=== PATIENT | female | born 1995 | race Caucasian/White ===

== ENCOUNTER 2016-08-15 16:09 | Emergency (ER) | payer OTHER ==
--- NOTE | ~2016-08-15 | EKG ---
PATIENT: ANDI PANCHAL UNIT #: [id number] Ventricular Rate: 81 BPM Atrial Rate: 81 BPM P-R Interval: 164 ms QRS Duration: 84 ms Q-T Interval: 378 ms QTC Calculation(Bezet): 439 ms P [place]: 30 degrees Calculated R [place]: 58 degrees Calculated T [place]: 42 degrees Diagnosis Line: Normal sinus rhythm Diagnosis Line: Cannot rule out Anterior infarct , age Diagnosis Line: undetermined Diagnosis Line: Abnormal ECG Diagnosis Line: No previous ECGs available Diagnosis Line: Confirmed by RENE CAIN MD ([id number]) on Diagnosis Line: 08/17/2016 1:27:02 PM INTERPRETING MD: ANT NUÑEZ
--- NOTE | ~2016-08-15 | CT16 ---
[facility] A Service of [facility] & [facility] RADIOLOGY TEXT RESULTS PATIENT: ANDI PANCHAL LOCATION: SED : [birth year] UNIT #: [id number] AGE: [address]: BRAD LEE PA-C SEX: F ORDER DR: [id number] [address] [address] [id number] E MR#: [id number] Acc #: [id number] NAME: ANDI PANCHAL. : 1995 SEX: F STUDY DATE/TIME: 08/15/2016 19:31 UNIT: SED ROOM: STUDY DESCRIPTION: CT Angio Chest for PE Attending Physician: Brad Lee Pa-C Ordering Physician: Physician Non-Staff Primary Care Physician: Tamera Newton M.D. MEDICAL IMAGING REPORT This report is preliminary unless electronic signature is present. EXAM CT chest, PE protocol HISTORY D-dimer elevated, left flank and chest pain for 2 weeks. History of asthma. COMMENT CT of the chest performed during the intravenous administration of 100 mL of Isovue-370 with imaging acquired in the axial plane using pulmonary embolism protocol. This is followed by 3-D coronal MIP reconstructed imaging for the purpose of CT pulmonary angiography. The study is limited by the patient's morbid obesity. This CT exam was performed with one or more of the following radiation dose reduction techniques: Automatic exposure control, adjustment of mA and/or kV according to patient size, and iterative reconstruction. There is no evidence for thoracic aortic dissection. There is no evidence for pulmonary embolism. There is no pericardial or pleural effusion. Patient is post cholecystectomy. There might be a small hiatal hernia. There is no hilar, mediastinal or axillary lymphadenopathy. No pneumothorax. Lungs clear, no congestive failure. IMPRESSION No evidence for pulmonary embolus, pleural or pericardial effusion, thoracic aortic dissection or pneumothorax. Lungs are clear. There may be a small hiatal hernia, otherwise essentially normal CT of the chest using pulmonary embolism protocol. Patient is post cholecystectomy. STAT * RESULT STS. [facility] A Service of [facility] & [facility] RADIOLOGY TEXT RESULTS PATIENT: ANDI PANCHAL [place] [facility] [place] [birth year] [place]IT #: [id number] AGE: [address]: BRAD LEE PA-C SEX: F ORDER DR: Dictated by... Fanny Sánchez M.D. THIS IS AN ELECTRONICALLY VERIFIED REPORT Fanny Sánchez M.D. at 08/16/2016 7:36 AM RYAN/fabio TD: 08/15/2016 20:19 JOB #: [id number] MEDICAL IMAGING REPORT Page 1 of 1
--- NOTE | ~2016-08-15 | CT4 ---
[facility] A Service of [facility] RADIOLOGY TEXT RESULTS PATIENT: ANDI PNACHAL LOCATION: SED : 95 UNIT #: [id number] AGE: [address]: BRAD LEE PA-C SEX: F ORDER DR: [id number] [address] [address] [id number] E MR#: [id number] Acc #: [id number] NAME: ANDI PANCHAL. : 1995 SEX: F STUDY DATE/TIME: 08/15/2016 19:27 UNIT: SED ROOM: STUDY DESCRIPTION: CT Abd and Pelv Wo Cont Attending Physician: Brad Lee Pa-C Ordering Physician: [facility] Primary Care Physician: Tamera Newton M.D. MEDICAL IMAGING REPORT This report is preliminary unless electronic signature is present. EXAM CT abdomen and pelvis without contrast HISTORY Left flank pain for [address] exam was performed with one or more of the following radiation dose reduction techniques: automatic exposure control, adjustment of mA and/or kV according to patient size, and iterative reconstruction. FINDINGS CT abdomen and pelvis was performed without contrast. CT ABDOMEN There are 3 tiny right renal calculi and 3 small left renal calculi measuring up to 2 mm on the right and 3 mm on the left. Parenchymal scarring versus developmental lobulation along the posterior mid left kidney. No perinephric stranding. The liver, spleen, pancreas, and adrenal glands are normal. Cholecystectomy. No urinary obstruction. Incidental 3 cm cyst in the lower pole right kidney. No bowel dilatation. Normal caliber abdominal aorta. No ascites. No adenopathy. CT PELVIS Normal appendix. No free fluid. No inflammatory changes. Urinary bladder is normal. The uterus and adnexa are unremarkable. IMPRESSION 1. No acute findings in the abdomen or pelvis. 2. Multiple nonobstructing bilateral renal calculi. 3. Normal appendix. [facility] A Service of [facility] RADIOLOGY TEXT RESULTS PATIENT: ANDI PANCHAL LOCATION: SED : 95 UNIT #: [id number] AGE: [address]: BRAD LEE PA-C SEX: F ORDER DR: Dictated by... Rodrick Rosado M.D. THIS IS AN ELECTRONICALLY VERIFIED REPORT Rodrick Rosado M.D. at 08/16/2016 12:58 PM FABIANA/phil TD: 08/16/2016 08:50 JOB #: [id number] MEDICAL IMAGING REPORT Page 1 of 1
[~2016-08-15 16:09] MED LIST: ALBUTEROL17 GM INH; BENTYL10 MG PO; MACROBID100 MG PO; MOTRIN600 M2 DOB; NO MEDICATIONS; PHENERGAN SUPP25 M1 PR; PHENERGAN25 M1 PO; PRENATAL1 TA1 PO; ZOFRANODT PO
[2016-08-15 16:38] LABS: URINE SOURCE CLEAN CATCH
[2016-08-15 16:41] LABS: URINE APPEARANCE HAZY; URINE BILIRUBIN NEG (NEG); URINE BLOOD 3+ (NEG); URINE COLOR DK YELLOW; URINE GLUCOSE NEG (NORM); URINE KETONE NEG (NEG); URINE LEUKOCYTE ESTERASE TRACE (NEG); URINE NITRATE NEG (NEG); URINE PROTEIN 1+ (NEG); URINE UROBILINOGEN 0.2 MG/DL (NORM)
[2016-08-15 16:42] LABS: MICRO INDICATED? YES
[2016-08-15 16:44] LABS: BASOPHIL% 0.5 % (0-2.5); EOSINOPHIL% 0.5 % (0.0-7.0); HEMATOCRIT 35.4 % (35.0-45.0); HEMOGLOBIN 11.1 gm/dL (12.0-16.0); LYMPHOCYTE# 1.7 X10e3 (1.0-3.5); LYMPHOCYTE% 23.4 % (17.0-45.0); MEAN CELL VOLUME 76.1 FL (83-96); MEAN CORPUSCULAR HEMOGLOBIN 23.7 PG (28-34); MEAN CORPUSCULAR HGB CONC 31.2 g/dL (30-36); MONOCYTE# 0.4 X10e3 (0-1.0); MONOCYTE% 5.6 % (3.0-12.0); NEUTROPHIL# 5.2 X10e3 (1.5-7.1); PLATELET COUNT 223 X10e3 (140-420); RED BLOOD COUNT 4.66 X10e (3.90-5.30); RED CELL DISTRIBUTION WIDTH 18.8 % (11.0-15.5); WHITE BLOOD COUNT 7.4 X10e3 (4.0-10.5)
[2016-08-15 16:47] LABS: URINE RBC 100-200 /[HPF] (0-2)
[2016-08-15 16:48] LABS: CULTURE INDICATED? YES; URINE BACTERIA 2+ (NEG); URINE MUCUS PRESENT; URINE SQUAMOUS EPITHELIAL CELL MODERATE /[HPF]
[2016-08-15 16:56] LABS: DIFF IND NO
[2016-08-15 16:59] LABS: ALBUMIN SERUM 3.9 g/dL (3.5-5.0); BILIRUBIN,TOTAL 0.2 mg/dL (0.2-2.0); CALCIUM SERUM 9.2 mg/dL (8.4-10.2); CREATININE SERUM 0.6 mg/dL (0.6-1.4); GLOM FILT RATE Estimated 131.2 mL/min (>60); POTASSIUM 3.8 mmol/L (3.5-5.1); PROTEIN TOTAL SERUM 7.2 g/dL (6.0-8.3)
[2016-08-15 17:05] LABS: POC - CKMB <1.0 ng/mL (0.0-7.9); POC - TROPONIN <0.05 ng/mL (<=0.05)
[2016-08-15] MEDS ORDERED: MOBIC15 MG PO (21:01)
[2016-08-15] MEDS ORDERED: BACTRIM DS TAB1 EACH PO (21:02)
== END 2016-08-15 21:02 | disposition home or self-care (01) ==
LOC: SED 16:09
PROVIDERS: Physician Assistant
DX: N20.1 Calculus of ureter (principal); N30.01 Acute cystitis with hematuria; J45.909 Unspecified asthma, uncomplicated; F17.200 Nicotine dependence, unspecified, uncomplicated; Z90.49 Acquired absence of other specified parts of digestive tract
CPT/HCPCS: 36415; 71275; 74176; 80053; 81003; 82553; 83690; 84484; 84703; 85025; 85379; 87086; 93005; 96374; 96375; 99284; J2270; J2405; Q9967

== ENCOUNTER 2016-08-16 23:19 | Emergency (ER) | payer OTHER ==
[~2016-08-16 23:19] MED LIST changes: +BACTRIM DS TAB1 EACH PO; +MOBIC15 MG PO
[2016-08-17 01:21] LABS: URINE SOURCE CATH
[2016-08-17 01:23] LABS: URINE APPEARANCE CLEAR; URINE BILIRUBIN NEG (NEG); URINE BLOOD NEG (NEG); URINE COLOR YELLOW; URINE GLUCOSE NEG (NORM); URINE KETONE NEG (NEG); URINE LEUKOCYTE ESTERASE 1+ (NEG); URINE NITRATE NEG (NEG); URINE PH 7.5 (5-8); URINE PROTEIN NEG (NEG); URINE SPECIFIC GRAVITY 1.015 (1.003-1.035); URINE UROBILINOGEN 0.2 MG/DL (NORM)
[2016-08-17 01:25] LABS: MICRO INDICATED? YES
[2016-08-17 01:26] LABS: CULTURE INDICATED? YES; URINE BACTERIA 1+ (NEG); URINE MUCUS PRESENT; URINE RBC 0-2 /[HPF] (0-2); URINE SQUAMOUS EPITHELIAL CELL FEW /[HPF]
[2016-08-17 01:49] LABS: BASOPHIL% 0.6 % (0-2.5); EOSINOPHIL% 0.6 % (0.0-7.0); HEMATOCRIT 33.9 % (35.0-45.0); HEMOGLOBIN 10.9 gm/dL (12.0-16.0); LYMPHOCYTE# 1.5 X10e3 (1.0-3.5); LYMPHOCYTE% 23.4 % (17.0-45.0); MEAN CELL VOLUME 76.2 FL (83-96); MEAN CORPUSCULAR HEMOGLOBIN 24.6 PG (28-34); MEAN CORPUSCULAR HGB CONC 32.3 g/dL (30-36); MEAN PLATELET VOLUME 9.8 FL (6.5-11.5); MONOCYTE# 0.4 X10e3 (0-1.0); MONOCYTE% 6.5 % (3.0-12.0); NEUTROPHIL# 4.4 X10e3 (1.5-7.1); NEUTROPHIL% 68.9 % (40-75); PLATELET COUNT 201 X10e3 (140-420); RED BLOOD COUNT 4.45 X10e (3.90-5.30); RED CELL DISTRIBUTION WIDTH 18.9 % (11.0-15.5); WHITE BLOOD COUNT 6.4 X10e3 (4.0-10.5)
[2016-08-17 01:52] LABS: DIFF IND NO
[2016-08-17 02:18] LABS: BUN/CREATININE RATIO 12.85; CALCIUM SERUM 9.1 mg/dL (8.4-10.2); CREATININE SERUM 0.7 mg/dL (0.6-1.4); GLOM FILT RATE Estimated 124.7 mL/min (>60)
== END 2016-08-17 02:49 | disposition home or self-care (01) ==
LOC: SED 23:19
PROVIDERS: Emergency Medicine
DX: N93.9 Abnormal uterine and vaginal bleeding, unspecified (principal); N39.0 Urinary tract infection, site not specified; Z90.49 Acquired absence of other specified parts of digestive tract; F17.200 Nicotine dependence, unspecified, uncomplicated; Z87.442 Personal history of urinary calculi
CPT/HCPCS: 36415; 80048; 81003; 84703; 85025; 87086; 96360; 99284

== ENCOUNTER 2016-09-28 23:57 | Emergency (ER) | payer OTHER ==
--- NOTE | ~2016-09-28 | CR72 ---
[facility]. [facility] A Service of [facility] & [facility] RADIOLOGY TEXT RESULTS PATIENT: ANDI PANCHAL LOCATION: SED : [birth year] UNIT #: [id number] AGE: [address]: Emiliano Hawley MD SEX: F ORDER DR: [id number] [place] [id number] E MR#: [id number] Acc #: [id number] NAME: ANDI PANCHAL. : 1995 SEX: F STUDY DATE/TIME: 09/29/2016 1:35 UNIT: SED ROOM: STUDY DESCRIPTION: CR Chest Single View Portable Attending Physician: Emiliano Hawley M.D. Ordering Physician: Emiliano Hawley M.D. Primary Care Physician: Tamera Newton M.D. MEDICAL IMAGING REPORT This report is preliminary unless electronic signature is present. EXAM Portable chest. INDICATIONS Chest pain and dizziness for the past 3 days. PROCEDURE Frontal view chest. COMPARISON None. FINDINGS Heart size is normal. Lungs are clear. No pleural fluid. No pneumothorax. IMPRESSION No active process. Dictated by... Josh Pleitez M.D. THIS IS AN ELECTRONICALLY VERIFIED REPORT Josh Pleitez M.D. at 09/29/2016 10:27 PM ELIOD/mary TD: 09/29/2016 08:27 JOB #: [id number] MEDICAL IMAGING REPORT Page 1 of 1
--- NOTE | ~2016-09-28 | EKG ---
PATIENT: ANDI PANCHAL UNIT #: [id number] Ventricular Rate: 94 BPM Atrial Rate: 94 BPM P-R Interval: 144 ms QRS Duration: 84 ms Q-T Interval: 348 ms QTC Calculation(Bezet): 435 ms P [place]: 31 degrees Calculated R [place]: 63 degrees Calculated T [place]: 15 degrees Diagnosis Line: Normal sinus rhythm Diagnosis Line: Normal ECG Diagnosis Line: Diagnosis Line: Confirmed by RENE CAIN MD ([id number]) on Diagnosis Line: 09/30/2016 4:49:43 PM INTERPRETING MD: ANT NUÑEZ
[2016-09-29] MEDS ORDERED: NO MEDICATIONS (00:09)
[2016-09-29 01:29] LABS: BASOPHIL% 0.7 % (0-2.5); EOSINOPHIL% 0.2 % (0.0-7.0); HEMATOCRIT 34.5 % (35.0-45.0); HEMOGLOBIN 11.1 gm/dL (12.0-16.0); LYMPHOCYTE# 1.4 X10e3 (1.0-3.5); LYMPHOCYTE% 18.7 % (17.0-45.0); MEAN CELL VOLUME 78.5 FL (83-96); MEAN CORPUSCULAR HEMOGLOBIN 25.1 PG (28-34); MEAN PLATELET VOLUME 10.6 FL (6.5-11.5); MONOCYTE# 0.4 X10e3 (0-1.0); MONOCYTE% 5.5 % (3.0-12.0); NEUTROPHIL# 5.7 X10e3 (1.5-7.1); NEUTROPHIL% 74.9 % (40-75); PLATELET COUNT 246 X10e3 (140-420); RED CELL DISTRIBUTION WIDTH 16.9 % (11.0-15.5); WHITE BLOOD COUNT 7.6 X10e3 (4.0-10.5)
[2016-09-29 01:30] LABS: DIFF IND NO
[2016-09-29 01:42] LABS: CALCIUM SERUM 9.1 mg/dL (8.4-10.2); CREATININE SERUM 0.7 mg/dL (0.6-1.4); GLOM FILT RATE Estimated 124.7 mL/min (>60); POTASSIUM 3.7 mmol/L (3.5-5.1)
[2016-09-29 01:53] LABS: POC - CKMB <1.0 ng/mL (0.0-7.9); POC - TROPONIN <0.05 ng/mL (<=0.05)
[2016-09-29 01:57] LABS: URINE SOURCE CLEAN CATCH
[2016-09-29 01:59] LABS: URINE APPEARANCE HAZY; URINE BILIRUBIN NEG (NEG); URINE BLOOD NEG (NEG); URINE COLOR YELLOW; URINE GLUCOSE NEG (NORM); URINE KETONE NEG (NEG); URINE LEUKOCYTE ESTERASE 2+ (NEG); URINE NITRATE NEG (NEG); URINE PROTEIN NEG (NEG); URINE UROBILINOGEN 0.2 MG/DL (NORM)
[2016-09-29 02:03] LABS: MICRO INDICATED? YES
[2016-09-29 02:04] LABS: CULTURE INDICATED? YES; URINE BACTERIA 2+ (NEG); URINE MUCUS PRESENT; URINE SQUAMOUS EPITHELIAL CELL MODERATE /[HPF]
== END 2016-09-29 02:38 | disposition home or self-care (01) ==
LOC: SED 23:57
PROVIDERS: Emergency Medicine
DX: R07.9 Chest pain, unspecified (principal); N39.0 Urinary tract infection, site not specified; F41.9 Anxiety disorder, unspecified; J45.909 Unspecified asthma, uncomplicated; F17.200 Nicotine dependence, unspecified, uncomplicated
CPT/HCPCS: 36415; 71010; 80048; 81003; 82553; 84484; 84703; 85025; 87086; 93005; 96360; 99285

== ENCOUNTER 2016-10-07 19:17 | Emergency (ER) | payer OTHER ==
--- NOTE | ~2016-10-07 | CT4 ---
[facility]. [facility] A Service of [facility] RADIOLOGY TEXT RESULTS PATIENT: ANDI PANCHAL LOCATION: SED : [birth year] UNIT #: [id number] AGE: [address]: KORY CRAIG SEX: F ORDER DR: [id number] [address] [address] [id number] E MR#: [id number] Acc #: [id number] NAME: ANDI PANCHAL. : 1995 SEX: F STUDY DATE/TIME: 10/07/2016 20:30 UNIT: SED ROOM: STUDY DESCRIPTION: CT Abd and Pelv Wo Cont Ordering Physician: [facility] MEDICAL IMAGING REPORT This report is preliminary unless electronic signature is present. EXAM Abdomen and pelvis CT no contrast 10/07/2016 INDICATIONS Difficulty urinating for a week. Dysuria. History of stones. Status post cholecystectomy. TECHNIQUE Noncontrast abdomen and pelvis CT was performed. This CT exam was performed with one or more of the following radiation dose reduction techniques: automatic exposure control, adjustment of mA and/or kV according to patient size, and iterative reconstruction. COMPARISON 08/15/2016. FINDINGS CT ABDOMEN: Exam markedly degraded by noncontrast technique. Included lung bases are clear. No effusion. Aorta unremarkable. Spleen, adrenal glands, pancreas unremarkable. Gallbladder surgically absent. The liver is normal. Kidneys demonstrate non-obstructing stones bilaterally. No hydronephrosis. Incidental exophytic cyst arising from the lower pole right kidney, unchanged. CT PELVIS: The bladder demonstrates mild wall thickening, even in the setting of incomplete distension, and probable subtle inflammatory change. Correlate with signs or symptoms of cystitis and urinalysis. There is no drainable fluid collection or adnexal mass. Bowel and appendix normal. Inguinal canals unremarkable. Osseous structures demonstrate no suspicious bone lesion. [facility] A Service of [facility] RADIOLOGY TEXT RESULTS PATIENT: ANDI PANCHAL LOCATION: SED : [birth year] UNIT #: [id number] AGE: [address]: KORY CRAIG SEX: F ORDER DR: IMPRESSION 1. Findings suspicious for mild cystitis. The kidneys are non-obstructed. There are bilateral non-obstructing stones. 2. Incidental right renal cyst. 3. Normal appendix. Dictated by... Lito Little M.D. THIS IS AN ELECTRONICALLY VERIFIED REPORT Lito Little M.D. at 10/07/2016 11:51 PM ANNEMARIE/luciano TD: 10/07/2016 23:01 JOB #: [id number] MEDICAL IMAGING REPORT Page 1 of 1
[2016-10-07 19:42] LABS: URINE SOURCE CLEAN CATCH
[2016-10-07 19:48] LABS: URINE APPEARANCE SL CLOUDY; URINE BILIRUBIN NEG (NEG); URINE BLOOD 3+ (NEG); URINE COLOR RED; URINE GLUCOSE NEG (NORM); URINE KETONE NEG (NEG); URINE LEUKOCYTE ESTERASE 2+ (NEG); URINE NITRATE NEG (NEG); URINE PH 7.5 (5-8); URINE PROTEIN 2+ (NEG)
[2016-10-07 20:00] LABS: MICRO INDICATED? YES
[2016-10-07 20:02] LABS: URINE RBC INNUM /[HPF] (0-2)
[2016-10-07 20:05] LABS: CULTURE INDICATED? YES; URINE BACTERIA NEG (NEG); URINE MUCUS PRESENT; URINE SQUAMOUS EPITHELIAL CELL OCCAS /[HPF]; URINE TRANSITIONAL EPI CELLS FEW /[HPF]
== END 2016-10-07 21:45 | disposition home or self-care (01) ==
LOC: SED 19:17
PROVIDERS: Nurse Practitioner
DX: N30.90 Cystitis, unspecified without hematuria (principal); F17.210 Nicotine dependence, cigarettes, uncomplicated; Z90.49 Acquired absence of other specified parts of digestive tract; Z87.440 Personal history of urinary (tract) infections
CPT/HCPCS: 36415; 74176; 81003; 84703; 87086; 87088; 87186; 96361; 96374; 99284; J1885